=== PATIENT | male | born 2005 | race Caucasian/White ===

== ENCOUNTER 2024-05-04 17:56 | Emergency (ER) | payer SELFPAY ==
[2024-05-04 18:31] VITALS: BP 129/80
--- NOTE | 2024-05-04 19:32 | ED Physician Documentation ---
History of Present Illness - Stated complaint Stated Complaint: - Chief complaint Chief Complaint: General - History obtained from History obtained from: Patient - History of Present Illness Timing: Prior to arrival - Additonal information Additional information: Patient is a 19-year-old male who presents with symptoms of rectal pain that started a few days ago. Patient notes pain with having a bowel movement and noted bright red blood in his stool today. Patient denies ever having the symptoms. He denies being constipated but denies any recent diarrhea. He notes pain is only when he is having a bowel movement. He denies any fevers no changes in stool. No nausea vomiting fevers no history of abdominal surgeries. He denies any abdominal pain associated with his symptoms. PD PAST MEDICAL HISTORY - Past Medical History Past Medical History: No Cardiovascular: None Respiratory: None Neuro: None Endocrine/Autoimmune: None GI: None : None HEENT: None Psych: None Musculoskeletal: None Derm: None - Past Surgical History Past Surgical History: Yes - Present Medications Home Medications: Ambulatory Orders Medication Instructions Recorded Confirmed Hydrocortisone [Anusol-Hc] 30 gm RC BID 7 Days #420 gm 05/04/24 polyethylene glycoL 3350(BULK) 17 gm PO DAILY PRN #1 each 05/04/24 [Miralax] - Allergies Allergies/Adverse Reactions: Allergies Allergy/AdvReac Type Severity Reaction Status Date / Time No Known Drug Allergies Allergy Verified 05/04/24 18:26 - Social History Does the pt smoke?: Yes Smoking Status: Current every day smoker Does the pt drink ETOH?: No ETOH Use: Beer Substance Use and Type: Marijuana - Immunizations Immunizations: TDAP >10years/unknown PD ED PE NORMAL - Vitals Vital signs reviewed: Yes - General General: Alert and oriented X 3 - HEENT HEENT: Atraumatic - Neck Neck: Supple, no meningeal sign - Cardiac Cardiac: RRR, No murmur, No gallop, No rub - Respiratory Respiratory: No respiratory distress, Clear bilaterally - Abdomen Abdomen: Normal bowel sounds, Soft, Non tender, Non distended - Male Male : 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 Patient notes pain with having a bowel movement and noted bright red blood in his stool today. Patient denies ever having the symptoms. He denies being constipated but denies any recent diarrhea. He notes pain is only when he is having a bowel movement. He denies any fevers no changes in stool. No nausea vomiting fevers no history of abdominal surgeries. He denies any abdominal pain associated with his symptoms.Rectal exam shows anal fissure at 12 o'clock position 1 mm size no active bleeding tenderness on examination no signs of hemorrhoids. Updated patient symptoms most likely secondary to anal fissure. He was given stool softener and Anusol to help with his symptoms. He was instructed to drink lots of fluids to help with his symptoms and return with any worsening pain or persistent bleeding that cannot stop. Patient agreeable with this plan will follow-up in outpatient setting. Patient requesting work note prior to alayna roberto. Departure - Departure Disposition: 01 Home, Self Care Clinical Impression: Constipation, Anal fissure, Acute pain Condition: Good Prescriptions: Hydrocortisone [Anusol-Hc] 30 gm RC BID 7 Days #420 gm polyethylene glycoL 3350(BULK) [Miralax] 17 gm PO DAILY PRN #1 each PRN Reason: Constipation Comments: You were seen here in the emergency department for your symptoms of Rectal pain I have given you a cream and started you on MiraLAX symptoms most likely secondary to constipation and straining to have a bowel movement please take as prescribed return with any worsening pain or blood this may require surgery if i t persists. Forms: PCP List Discharge Date/Time: 05/04/24 20:18
[2024-05-04 20:27] VITALS: O2SAT 100
== END 2024-05-04 20:18 | disposition home or self-care (01) ==
LOC: ED 17:56
DX: K59.00 Constipation, unspecified (principal); K60.2 Anal fissure, unspecified; K62.89 Other specified diseases of anus and rectum; F17.200 Nicotine dependence, unspecified, uncomplicated
CPT/HCPCS: 99282

== ENCOUNTER 2024-05-14 15:25 | Emergency (ER) | payer SELFPAY ==
[2024-05-14 15:34] VITALS: BP 134/81; O2SAT 99
[2024-05-14] MEDS: LIDOCAINE PATCH 4% TOP STA (16:35)
--- NOTE | 2024-05-14 17:12 | XRAY Report ---
PROCEDURE: ThoracoLumbar 2+V INDICATIONS: process tenderness TECHNIQUE: 2 views acquired of the thoracolumbar spine. COMPARISON: None FINDINGS: Bones: No acute fractures or dislocations. Visualized inferior ribs appear intact. No suspicious b sera lesions. Disc and foraminal narrowing are present at L5-S1. Soft tissues: No suspicious soft tissue calcifications. IMPRESSION: No visualized acute fracture or dislocation. However, occult injury cannot be excluded. Recommend shandra rt interval imaging follow-up in 7-10 days as clinically indicated for additional evaluation. Reviewed by: Rocio Moreno MD on 05/14/2024 5:11 PM PDT Approved by: Rocio Moreno MD on 05/14/2024 5:11 PM PDT Station ID: [id number]
--- NOTE | 2024-05-14 17:45 | ED Physician Documentation ---
History of Present Illness - Stated complaint Stated Complaint: BACK PX - Chief complaint Chief Complaint: Back Pain - Additonal information Additional information: Patient is a 19-year-old male presenting to the emergency department with lower back pain. Patient notes symptoms have been going on for years. He notes he bent over at work today felt a pop and is concerned he had worsening back pain. He notes his lower back pain started a few years ago after he had a wakeboarding incident. Patient notes he has previous fracture to one of his spine but he is unsure which one. He denies any complications no numbness or tingling extrem ities no weakness. He was able to walk here without difficulty. Patient did not take anything for pain prior to coming to the emergency department.No fevers no history of IV drug use no saddle anesthesia no incontinence issues. PD PAST MEDICAL HISTORY - Past Medical History Cardiovascular: None Respiratory: None Neuro: None Endocrine/Autoimmune: None GI: None : None HEENT: None Psych: None Musculoskeletal: None Derm: None - Past Surgical History Past Surgical History: Yes - Present Medications Home Medications: Ambulatory Orders Medication Instructions Recorded Confirmed Hydrocortisone [Anusol-Hc] 30 gm RC BID 7 Days #420 gm 05/04/24 polyethylene glycoL 3350(BULK) 17 gm PO DAILY PRN #1 each 05/04/24 [Miralax] Cyclobenzaprine [Flexeril] 10 mg PO TID PRN #20 tablet 05/14/24 Lidocaine Patch 5% [Lidoderm Patch] 1 patch TOP DAILY PRN #10 patch 05/14/24 Naproxen 250 mg PO BID PRN #15 tablet 05/14/24 - Allergies Allergies/Adverse Reactions: Allergies Allergy/AdvReac Type Severity Reaction Status Date / Time No Known Drug Allergies Allergy Verified 05/14/24 15:33 - Social History Does the pt smoke?: Yes Smoking Status: Current every day smoker Does the pt drink ETOH?: No - Immunizations Immunizations: TDAP >10years/unknown PD ED PE NORMAL - Vitals Vital signs reviewed: Yes - General General: Alert and oriented X 3 - Neck Neck: Supple, no meningeal sign - Cardiac Cardiac: RRR, No murmur, No gallop, No rub - Respiratory Respiratory: No respiratory distress, Clear bilaterally - Abdomen Abdomen: Normal bowel sounds, Soft, Non tender, Non distended - Rectal Rectal: Deferred - Back Back: Other (Reproducible lumbar and thoracic spinous process tenderness on examination. No signs of swelling or bruising appreciated.) - Derm Derm: Normal color - Extremities Extremities: No deformity - Neuro Neuro: Alert and oriented X 3 Eye Opening: Spontaneous Motor: Obeys Commands Verbal: Oriented GCS Score: 15 - Free text exam Free text exam: Sensation intact equal bilaterally lower extremities strength intact no obvious deformity. Good capillary refill. Results - Vitals Vitals: Vital Signs - 24 hr 05/14/24 15:28 Temperature 36.9 C Heart Rate 73 Respiratory 16 Rate Blood Pressure 134/81 H O2 Saturation 99 Oxygen O2 Source Room air - Rads (name of study) thoracic/lumbar spine Relevant Findings:: EMP independent interpretation of test PD Medical Decision Making - ED course Complexity details: reviewed old records, reviewed results ED course: Patient is a 19-year-old male presenting to the emergency department with lower back pain. Patient symptoms started earlier today after he was at work bent down to pick something up and felt a pop. He denies any trauma. He notes a few years ago he had wakeboarding accident and sustained fracture to his lower back. He has no distal focal neurodeficits from injury and did not receive surgery for this. He does not recall which spine this occurred at. On physical exam patient has no acute findings. No suspicious bony step-off or swelling or bruising appreciated. Patient remains neurovascularly intact distally. Good sensation and good strength stable gait on ambulation. X-ray of lumbar spine: No visualized acute fracture or dislocation. However, occult injury cannot be excluded. Recommend short interval imaging follow-up in 7-10 days as clinically indicated for additional evaluation. Lumbar spine x-ray shows no acute findings there is some disc and foraminal narrowing at L5-S1. Patient was given lidocaine patch here in the emergency department to help with pain. Will send similar prescription at home patient feeling slightly better here in emergency department. He is requesting work note will give short-term work note for patient to rest and take medications at home for symptoms. He is instructed to return with any numbness tingling weakness in bilateral legs any incontinence issues saddle anasthesia fevers or new or worsening symptoms. Departure - Departure Disposition: 01 Home, Self Care Clinical Impression: Lumbar back pain, Back pain Condition: Good Instructions: ED Back Care Tips, ED Spasm Back No Trauma, Flexeril Prescriptions: Cyclobenzaprine [Flexeril] 10 mg PO TID PRN #20 tablet PRN Reason: Spasms Lidocaine Patch 5% [Lidoderm Patch] 1 patch TOP DAILY PRN #10 patch PRN Reason: pain Naproxen 250 mg PO BID PRN #15 tablet PRN Reason: Pain Comments: Follow-up in outpatient setting with your PCP watch for any numbness tingling weakness in bilateral legs any incontinence issues saddle anasthesia fevers. I have given you pain medications please take as prescribed please read attached sheets for further information.
== END 2024-05-14 17:58 | disposition home or self-care (01) ==
LOC: ED 15:25
DX: M54.50 Low back pain, unspecified (principal); X50.9XXA Other and unspecified overexertion or strenuous movements or postures, initial encounter; Y93.89 Activity, other specified; Y92.512 Supermarket, store or market as the place of occurrence of the external cause; Y99.0 Civilian activity done for income or pay; F17.200 Nicotine dependence, unspecified, uncomplicated
CPT/HCPCS: 72080; 99283; 99284; A9270